=== PATIENT | male | born 1980 | race Caucasian/White ===

== ENCOUNTER 2017-03-26 14:04 | Day surgery (SDC) | payer OTHER ==
--- NOTE | ~2017-03-26 | OP ---
Record Of Operation [facility] [address] [place]. [address] NAME: HETAL FENG : 80 STATUS : REG [facility]#: [id number] AGE: 36 ADM/REG DATE : 03/26/17 MR#: [id number] REPORT SERV DATE: 03/26/17 DICTATED BY: SARITA REYES DATE: 03/26/17 REPORT STATUS : Draft TRANSCRIBED BY: MODL DATE: 03/26/17 DATE OF PROCEDURE: 03/26/2017 PREPROCEDURE DIAGNOSIS: 4 mm right ureteral calculus. POSTPROCEDURE DIAGNOSIS: 4 mm right ureteral calculus. PROCEDURE: Right ESWL. CREW MEMBER: Dayana Carpio. ANESTHESIA: MAC. HISTORY: Mr. Feng is a 36-year-old white gentleman, with a symptomatic right ureteral calculus. We discussed treatment options and he requested right ESWL. The risks specific to this procedure include, but not limited to bleeding, infection, incomplete stone fragmentation, Steinstrasse, hematoma, injury to neighboring organs, need for further urologic procedures, anesthesia complications, and so forth. I answered all his questions I believe to his satisfaction. Subsequently, he requested the procedure and provided his informed written consent. PROCEDURE IN DETAIL: On 03/26/2017, the patient was brought to the lithotripsy suite. He was placed supine on the Dornier Compact Delta II lithotriptor. Biplanar fluoroscopy was used to localize the right ureteral calculus. A time-out was called. The proper patient and procedure were confirmed. Levaquin was administered as a perioperative antibiotic. At this time, the Anesthesia team established monitored anesthesia care. Subsequently, we delivered a total of 3000 shocks at a maximum power of 5 and rate of 120 shocks per minute to the stone. Fluoroscopy time was 54 seconds. The patient tolerated the procedure well without any immediate complications and was transferred to the recovery room in stable condition. RAC/PATTL Sarita Reyes M.D. / [id number] CC: Ely Pulido M.D.
[~2017-03-26 14:04] MED LIST: ADVIL PO; LEXAPRO10 PO; PCET PO; PRILO PO
== END 2017-03-26 18:17 | disposition home or self-care (01) ==
LOC: SDC 14:04
PROVIDERS: Urology
PROC: 0TF6XZZ Fragmentation in Right Ureter, External Approach (ICD-10-PCS; principal; 2017-03-26 16:00)
DX: N20.1 Calculus of ureter (principal); K21.9 Gastro-esophageal reflux disease without esophagitis; F32.9 Major depressive disorder, single episode, unspecified; F17.210 Nicotine dependence, cigarettes, uncomplicated; E66.9 Obesity, unspecified; Z68.35 Body mass index [BMI] 35.0-35.9, adult; Z98.890 Other specified postprocedural states
CPT/HCPCS: 50590; 74000; J2250; J2405; J3010